=== PATIENT | male | born 1995 | race Hispanic/Latino ===

== ENCOUNTER 2023-08-16 03:44 | Emergency (ER) | payer BC ==
[~2023-08-16] VITALS: Ht 175.3 cm; Wt 59.0 kg
[2023-08-16 04:09] VITALS: BP 127/92; PULSE 74; RESP 18; O2SAT 99
[2023-08-16] MEDS: KETOROLAC 30MG VIAL (30MG/ML) IVP ONE (04:22)
[2023-08-16] MEDS: ONDANSETRON 4MG INJ IVP ONE (04:22)
[2023-08-16 04:27] LABS: BASOPHILS # (AUTO) 0.07 K/uL (0.00-0.20); BASOPHILS % (AUTO) 0.5 % (0.0-5.0); EOSINOPHILS # (AUTO) 0.11 K/uL (0.00-0.70); EOSINOPHILS % (AUTO) 0.8 % (0.0-8.0); HEMATOCRIT 43.6 % (42-54); IMMATURE GRANULOCYTE ABSOLUTE 0.05 K/uL (0-1); LYMPHOCYTES # (AUTO) 1.2 K/uL (1.0-4.8); LYMPHOCYTES % (AUTO) 8.8 % (21.0-51.0); MEAN CORPUSCULAR HEMOGLOBIN 31.7 pg (27.0-33.0); MEAN CORPUSCULAR HGB CONC 34.4 g/dL (32.0-36.0); MEAN CORPUSCULAR VOLUME 92.2 fL (79-99); MONOCYTES # (AUTO) 1.1 K/uL (0.1-1.0); MONOCYTES % (AUTO) 8.5 % (3.0-13.0); NEUTROPHILS # (AUTO) 10.8 K/uL (1.8-7.7); PLATELET COUNT (AUTO) 293 K/uL (130-400); RED BLOOD CELL COUNT(AUTO) 4.73 MIL/uL (4.50-6.20); RED CELL DISTRIBUTION WIDTH 12.7 % (11.0-15.5); WHITE BLOOD COUNT (AUTO) 13.3 K/uL (4.8-10.8)
[2023-08-16 04:35] LABS: CREATININE 1.1 mg/dL (0.5-1.3); POTASSIUM 3.9 mmol/L (3.5-5.1)
[2023-08-16 04:40] LABS: ALBUMIN 4.2 g/dL (3.5-5.0); BILIRUBIN,TOTAL 0.5 mg/dL (0.2-1.0); TOTAL PROTEIN, SERUM 8.2 g/dL (6.0-8.3)
[2023-08-16 05:05] LABS: WBC MORPHOLOGY CONSISTENT W/DIFF
[2023-08-16] MEDS ORDERED: DICY20TA2 PO (05:19)
== END 2023-08-16 05:29 | disposition home or self-care (01) ==
LOC: EDH 03:44
DX: K80.20 Calculus of gallbladder without cholecystitis without obstruction (principal)
CPT/HCPCS: 99284; 96374; 76705; 96375; 80053; 83690; 85025; 36415; J2405; J1885

== ENCOUNTER 2023-09-16 22:46 | Inpatient (IN) | payer BC ==
[~2023-09-16] VITALS: Ht 175.3 cm; Wt 61.6 kg
[~2023-09-16 22:46] MED LIST: DICY20TA2 PO
[2023-09-16] MEDS ORDERED: MORPHINE 4 MG SYG IVP ONE (23:30)
[2023-09-16 23:32] LABS: BASOPHILS % (AUTO) 0.6 % (0.0-5.0); EOSINOPHILS # (AUTO) 0.02 K/uL (0.00-0.70); EOSINOPHILS % (AUTO) 0.1 % (0.0-8.0); HEMATOCRIT 44.2 % (42-54); IMMATURE GRANULOCYTE ABSOLUTE 0.05 K/uL (0-1); LYMPHOCYTES # (AUTO) 0.9 K/uL (1.0-4.8); LYMPHOCYTES % (AUTO) 5.3 % (21.0-51.0); MEAN CORPUSCULAR HEMOGLOBIN 31.4 pg (27.0-33.0); MEAN CORPUSCULAR HGB CONC 33.9 g/dL (32.0-36.0); MEAN CORPUSCULAR VOLUME 92.7 fL (79-99); MONOCYTES % (AUTO) 5.8 % (3.0-13.0); NEUTROPHILS # (AUTO) 14.6 K/uL (1.8-7.7); NEUTROPHILS % (AUTO) 87.9 % (40.0-77.0); PLATELET COUNT (AUTO) 263 K/uL (130-400); RED BLOOD CELL COUNT(AUTO) 4.77 MIL/uL (4.50-6.20); RED CELL DISTRIBUTION WIDTH 12.4 % (11.0-15.5); WHITE BLOOD COUNT (AUTO) 16.7 K/uL (4.8-10.8)
[2023-09-16] MEDS: KETOROLAC 30MG VIAL (30MG/ML) IVP ONE (23:36)
[2023-09-16] MEDS: FAMOTIDINE 20MG TAB PO ONE (23:36)
[2023-09-16] MEDS: LACTATED RINGERS 1000ML 1,000 ML IV ONE (23:36)
[2023-09-16] MEDS: ONDANSETRON 4MG INJ IVP ONE (23:36)
[2023-09-16 23:41] LABS: POTASSIUM 3.5 mmol/L (3.5-5.1)
[2023-09-16 23:45] LABS: ALBUMIN 4.3 g/dL (3.5-5.0); BILIRUBIN,TOTAL 0.3 mg/dL (0.2-1.0); TOTAL PROTEIN, SERUM 8.2 g/dL (6.0-8.3)
[2023-09-16] MEDS ORDERED: IOHEXOL-350 75 ML VIAL IV ONE (23:51)
[2023-09-17] VITALS (27 sets, daily range): BP systolic 87–172; BP diastolic 66–95; PULSE 48–86; RESP 12–20; O2SAT 94–100
[2023-09-17] MEDS: LACTATED RINGERS 1000ML 1,000 ML IV SCH (01:19)
[2023-09-17] MEDS: ZOSYN 3.375GM +NS 50ML IV ONE (01:27)
[2023-09-17] MEDS ORDERED: DiphenhydrAMINE HCL 50 MG/ML VIAL IV PRN (02:00)
[2023-09-17] MEDS ORDERED: POTASSIUM CHLORIDE 10% ELIXIR 20 MEQ/15 ML UDCUP PO PRN (02:00)
[2023-09-17] MEDS ORDERED: MAG/ALUM/SIMETH 30 ML UDCUP PO PRN (02:00)
[2023-09-17] MEDS ORDERED: POTASSIUM CHLORIDE 10MEQ/100ML 100 ML IV PRN (02:00)
[2023-09-17] MEDS ORDERED: ACETAMINOPHEN 325 MG TAB PO PRN ×2 (02:00)
[2023-09-17] MEDS ORDERED: NITROGLYCERIN 0.4 MG SL TAB SL PRN (02:00)
[2023-09-17] MEDS ORDERED: FAMOTIDINE 20MG VIAL IV PRN (02:00)
[2023-09-17] MEDS ORDERED: ZOLPIDEM TARTRATE 5 MG TAB PO PRN (02:00)
[2023-09-17] MEDS ORDERED: HYDRALAZINE 20MG/ML VIAL IV PRN (02:00)
[2023-09-17] MEDS ORDERED: GUAIFENESIN-DM 200/20 MG 10 ML PO PRN (02:00)
[2023-09-17] MEDS ORDERED: ONDANSETRON 4MG INJ IV PRN (02:00)
[2023-09-17] MEDS ORDERED: KCL 20 MEQ ERTAB PO PRN (02:00)
[2023-09-17] MEDS ORDERED: LACTULOSE 20 GM/30 ML UDCUP PO PRN (02:00)
[2023-09-17 02:08] LABS: CREATININE 0.9 mg/dL (0.5-1.3)
[2023-09-17 02:09] LABS: INR 0.95 (0.85-1.15); PROTHROMBIN TIME 11.3 SEC (9.6-11.6)
[2023-09-17 02:10] LABS: PARTIAL THROMBOPLASTIN TIME 27.3 SEC (26.3-35.5)
[2023-09-17] MEDS: 0.9%NACL 1000ML 1,000 ML IV SCH (02:12)
[2023-09-17 02:13] LABS: ALBUMIN 3.6 g/dL (3.5-5.0); BILIRUBIN,DIRECT 0.1 mg/dL (0.0-0.3); BILIRUBIN,TOTAL 0.3 mg/dL (0.2-1.0); MAGNESIUM 1.8 mg/dL (1.80-2.40); TOTAL PROTEIN, SERUM 6.7 g/dL (6.0-8.3)
[2023-09-17 02:20] LABS: APPEARANCE,URINE CLEAR (CLEAR); BACTERIA,URINE RARE /HPF (None Seen); BILIRUBIN,URINE NEGATIVE (NEGATIVE); COLOR,URINE LIGHT-YELLOW (YELLOW); GLUCOSE, URINE (UA) NEGATIVE (NEGATIVE); KETONES,URINE NEGATIVE (NEGATIVE); LEUKOCYTE ESTERASE ,URINE NEGATIVE Leu/uL (NEGATIVE); MUCUS,URINE RARE LPF (None Seen); NITRATE,URINE NEGATIVE (NEGATIVE); OCCULT BLOOD,URINE NEGATIVE (NEGATIVE); PH,URINE 6.5 (5.0-8.0); PROTEIN,URINE NEGATIVE (NEGATIVE); SQUAMOUS EPITHELIAL CELL,UR RARE /HPF (0-2); UROBILINOGEN,URINE 0.2 mg/dL (0.2-1.0); WBC,URINE 0-1 /HPF (0-1)
[2023-09-17 02:23] LABS: HEMOGLOBIN A1C 5.1 % (4.0-6.0)
[2023-09-17] MEDS ORDERED: OMEP40CA21 PO (03:10)
[2023-09-17] MEDS: KETOROLAC 15MG/ML VIAL (15MG/ML) IV PRN (03:25)
[2023-09-17] MEDS: ZOSYN 3.375GM+NS 50ML 50 ML IV SCH (03:25)
[2023-09-17] MEDS: MAGNESIUM 2GM PREMIX 50ML 50 ML IV PRN (03:33)
[2023-09-17] MEDS ORDERED: DICYCLOMINE HCL 20 MG TAB PO PRN (05:00)
[2023-09-17] MEDS: INSULIN HUMULIN R 100 UNIT/ML 3ML SQ SCH (05:49)
[2023-09-17] MEDS: FAMOTIDINE 20MG VIAL IV SCH (08:13)
[2023-09-17] MEDS ORDERED: NON-FORMULARY MEDICATION 1 EACH (Omeprazole 40 MG) PO SCH (09:00)
[2023-09-17] MEDS ORDERED: PROPOFOL 10 MG/ML 20ML VIAL IV ONE ×2 (10:12→10:24)
[2023-09-17] MEDS ORDERED: ROCURONIUM BROMIDE 10MG/1ML 5ML VL ONE ×2 (10:12→11:44)
[2023-09-17] MEDS ORDERED: MIDAZOLAM HCL 1 MG/ML 2ML VIAL ONE (10:12)
[2023-09-17] MEDS ORDERED: FENTANYL CITRATE PF 50 MCG/1 ML 2ML VIAL ONE ×2 (10:13→10:25)
[2023-09-17] MEDS: ACETAMINOPHEN 500 MG TABLET ONE (10:21)
[2023-09-17] MEDS ORDERED: SUCCINYLCHOLINE CHLORIDE 20 MG/ML 10 ML VIAL ONE (10:25)
[2023-09-17 10:33] LABS: HEMATOCRIT 41.6 % (42-54); MEAN CORPUSCULAR HEMOGLOBIN 31.8 pg (27.0-33.0); MEAN CORPUSCULAR HGB CONC 33.2 g/dL (32.0-36.0); MEAN CORPUSCULAR VOLUME 95.9 fL (79-99); RED BLOOD CELL COUNT(AUTO) 4.34 MIL/uL (4.50-6.20); RED CELL DISTRIBUTION WIDTH 12.5 % (11.0-15.5); WHITE BLOOD COUNT (AUTO) 11.1 K/uL (4.8-10.8)
[2023-09-17] MEDS ORDERED: BUPIVACAINE/PF 0.5% 30ML VIAL ONE (10:56)
[2023-09-17] MEDS: BUPIVACAINE/PF 0.5% 30ML VIAL INJ ONE (10:56)
[2023-09-17] MEDS ORDERED: ONDANSETRON 4MG INJ ONE (11:16)
[2023-09-17] MEDS ORDERED: FENTANYL CITRATE PF 50 MCG/1 ML 5ML AMP IV ONE (11:41)
[2023-09-17] MEDS ORDERED: IOHEXOL-350 50ML VIAL IV ONE ×2 (12:07→12:53)
[2023-09-17] MEDS ORDERED: GLUCAGON 1MG KIT 1 MG ML ONE (12:16)
[2023-09-17] MEDS ORDERED: KETOROLAC 30MG VIAL (30MG/ML) ONE (13:53)
[2023-09-17] MEDS: MEPERIDINE-PF 25 MG/ML SYG ONE (14:30)
[2023-09-17 15:53] LABS: HEMATOCRIT 38.9 % (42-54); MEAN CORPUSCULAR HEMOGLOBIN 31.6 pg (27.0-33.0); MEAN CORPUSCULAR HGB CONC 32.4 g/dL (32.0-36.0); MEAN CORPUSCULAR VOLUME 97.5 fL (79-99); PLATELET COUNT (AUTO) 216 K/uL (130-400); RED BLOOD CELL COUNT(AUTO) 3.99 MIL/uL (4.50-6.20); RED CELL DISTRIBUTION WIDTH 12.5 % (11.0-15.5)
[2023-09-17 16:02] LABS: CREATININE 1.1 mg/dL (0.5-1.3)
[2023-09-17 16:06] LABS: ALBUMIN 3.3 g/dL (3.5-5.0); BILIRUBIN,TOTAL 0.5 mg/dL (0.2-1.0); MAGNESIUM 2.3 mg/dL (1.80-2.40); TOTAL PROTEIN, SERUM 6.4 g/dL (6.0-8.3)
[2023-09-17 16:18] LABS: BAND NEUTROPHILS % (MANUAL) 20 % (0-2); LYMPHOCYTES % (MANUAL) 4 % (22-44); MAN.DIFF COMMENT-IMPRESSION MANUAL DIFFERENTIAL; MONOCYTES % (MANUAL) 1 % (2-9); PLATELET MORPHOLOGY COMMENT ADEQUATE; SEGMENTED NEUTROPHILS % 75 % (40-70); TOTAL CELLS COUNTED 100; WBC MORPHOLOGY CONSISTENT W/DIFF
[2023-09-17] MEDS: ACETAMINOPHEN 325 MG TAB PO PRN (22:54)
[2023-09-18] VITALS (9 sets, daily range): BP systolic 114–128; BP diastolic 58–83; PULSE 47–82; RESP 12–20; O2SAT 99
[2023-09-18 04:46] LABS: BASOPHILS # (AUTO) 0.02 K/uL (0.00-0.20); BASOPHILS % (AUTO) 0.1 % (0.0-5.0); EOSINOPHILS # (AUTO) 0.01 K/uL (0.00-0.70); EOSINOPHILS % (AUTO) 0.1 % (0.0-8.0); HEMATOCRIT 34.6 % (42-54); IMMATURE GRANULOCYTE ABSOLUTE 0.08 K/uL (0-1); LYMPHOCYTES # (AUTO) 0.7 K/uL (1.0-4.8); LYMPHOCYTES % (AUTO) 4.8 % (21.0-51.0); MEAN CORPUSCULAR HEMOGLOBIN 31.4 pg (27.0-33.0); MEAN CORPUSCULAR HGB CONC 33.2 g/dL (32.0-36.0); MEAN CORPUSCULAR VOLUME 94.5 fL (79-99); MONOCYTES # (AUTO) 1.3 K/uL (0.1-1.0); MONOCYTES % (AUTO) 8.5 % (3.0-13.0); NEUTROPHILS # (AUTO) 13.2 K/uL (1.8-7.7); PLATELET COUNT (AUTO) 221 K/uL (130-400); RED BLOOD CELL COUNT(AUTO) 3.66 MIL/uL (4.50-6.20); RED CELL DISTRIBUTION WIDTH 12.3 % (11.0-15.5); WHITE BLOOD COUNT (AUTO) 15.4 K/uL (4.8-10.8)
[2023-09-18 05:10] LABS: BILIRUBIN,DIRECT 0.1 mg/dL (0.0-0.3); BILIRUBIN,TOTAL 0.5 mg/dL (0.2-1.0); CREATININE 1.1 mg/dL (0.5-1.3); MAGNESIUM 1.9 mg/dL (1.80-2.40); POTASSIUM 4.5 mmol/L (3.5-5.1)
[2023-09-18] MEDS ORDERED: ACET-2079 PO (08:26)
[2023-09-18] MEDS: MORPHINE 2 MG SYG IVP PRN (15:05)
[2023-09-19 03:00] VITALS: BP 123/70; PULSE 95; RESP 14
[2023-09-19 08:00] VITALS: BP 133/82; PULSE 105; RESP 20; O2SAT 93
[2023-09-19 10:27] LABS: BASOPHILS # (AUTO) 0.03 K/uL (0.00-0.20); BASOPHILS % (AUTO) 0.2 % (0.0-5.0); HEMATOCRIT 35.6 % (42-54); IMMATURE GRANULOCYTE ABSOLUTE 0.12 K/uL (0-1); LYMPHOCYTES # (AUTO) 0.7 K/uL (1.0-4.8); LYMPHOCYTES % (AUTO) 3.7 % (21.0-51.0); MEAN CORPUSCULAR HEMOGLOBIN 31.8 pg (27.0-33.0); MEAN CORPUSCULAR HGB CONC 33.4 g/dL (32.0-36.0); MEAN CORPUSCULAR VOLUME 95.2 fL (79-99); MONOCYTES # (AUTO) 1.8 K/uL (0.1-1.0); MONOCYTES % (AUTO) 9.5 % (3.0-13.0); NEUTROPHILS # (AUTO) 16.4 K/uL (1.8-7.7); PLATELET COUNT (AUTO) 193 K/uL (130-400); RED BLOOD CELL COUNT(AUTO) 3.74 MIL/uL (4.50-6.20); RED CELL DISTRIBUTION WIDTH 12.2 % (11.0-15.5); WHITE BLOOD COUNT (AUTO) 19.1 K/uL (4.8-10.8)
[2023-09-19 12:00] VITALS: BP 110/62; PULSE 65; RESP 18
[2023-09-19 16:00] VITALS: BP 120/70; PULSE 73; RESP 18
[2023-09-19 19:00] VITALS: BP 129/69; PULSE 85; RESP 20
[2023-09-20] VITALS: BP 111/63; PULSE 84; RESP 20
[2023-09-20 01:25] VITALS: O2SAT 98
[2023-09-20 04:00] VITALS: BP 136/76; PULSE 94; RESP 20
[2023-09-20 08:00] VITALS: BP 123/71; PULSE 84; RESP 18
[2023-09-20 08:45] VITALS: O2SAT 100
[2023-09-20 09:48] LABS: BASOPHILS # (AUTO) 0.04 K/uL (0.00-0.20); BASOPHILS % (AUTO) 0.3 % (0.0-5.0); EOSINOPHILS # (AUTO) 0.06 K/uL (0.00-0.70); EOSINOPHILS % (AUTO) 0.4 % (0.0-8.0); HEMATOCRIT 35.7 % (42-54); IMMATURE GRANULOCYTE ABSOLUTE 0.07 K/uL (0-1); LYMPHOCYTES % (AUTO) 6.3 % (21.0-51.0); MEAN CORPUSCULAR HEMOGLOBIN 31.8 pg (27.0-33.0); MEAN CORPUSCULAR HGB CONC 33.3 g/dL (32.0-36.0); MEAN CORPUSCULAR VOLUME 95.5 fL (79-99); MONOCYTES # (AUTO) 1.4 K/uL (0.1-1.0); MONOCYTES % (AUTO) 8.7 % (3.0-13.0); NEUTROPHILS # (AUTO) 13.4 K/uL (1.8-7.7); NEUTROPHILS % (AUTO) 83.9 % (40.0-77.0); PLATELET COUNT (AUTO) 205 K/uL (130-400); RED BLOOD CELL COUNT(AUTO) 3.74 MIL/uL (4.50-6.20); RED CELL DISTRIBUTION WIDTH 12.3 % (11.0-15.5); WHITE BLOOD COUNT (AUTO) 15.9 K/uL (4.8-10.8)
[2023-09-20 12:00] VITALS: BP 112/68; PULSE 88; RESP 18
[2023-09-20] MEDS ORDERED: AMOX1TAB16 PO (12:35)
== END 2023-09-20 13:15 | disposition home or self-care (01) | DRG 416 ==
LOC: EDH 22:46 → EDHIP 09-17 01:44 → 3BH 09-17 02:43
PROVIDERS: ADMIT Hospitalist; ATTEND Hospitalist
PROC: 0FT40ZZ Resection of Gallbladder, Open Approach (ICD-10-PCS; principal; 2023-09-17 10:30)
PROC: 0FJ44ZZ Inspection of Gallbladder, Percutaneous Endoscopic Approach (ICD-10-PCS; 2023-09-17 10:30)
PROC: BF131ZZ Fluoroscopy of Gallbladder and Bile Ducts using Low Osmolar Contrast (ICD-10-PCS; 2023-09-17 10:30)
DX: K80.00 Calculus of gallbladder with acute cholecystitis without obstruction (principal); I10 Essential (primary) hypertension; Z53.31 Laparoscopic surgical procedure converted to open procedure; K29.70 Gastritis, unspecified, without bleeding
CPT/HCPCS: 36415; 48400; 71045; 74177; 80048; 80053; 80076; 81001; 82140; 82248; 82550; 82948; 83036; 83605; 83690; 83735; 83880; 84145; 85025; 85027; 85378; 85610; 85730; 86850; 86900; 86901; 87088; 88304; 96375; C1758; G0378; J0330; J1610; J1885; J2175; J2250; J2270; J2405; J2543; J2704; J3010; J3475; J3490; J7030; Q9967; A4215; A4222; A4223; A4600; A4649; A6206; J0665